=== PATIENT | female | born 1985 | race Caucasian/White ===

== ENCOUNTER 2018-05-20 06:04 | Day surgery (SDC) | payer OTHER ==
[2018-05-20] MEDS ORDERED: CEFAZOLIN 1 GM INJ (07:00)
[2018-05-20 07:05] LABS: ADD MAN DIFF? NO
[2018-05-20 07:07] LABS: BASOPHILS % 0.5 % (0.0-2.0); EOSINOPHILS # 0.3 10^3/ul (0.0-0.5); EOSINOPHILS % 3.1 % (0.0-7.0); HEMATOCRIT 42.8 % (37.0-47.0); HEMOGLOBIN 14.2 g/dl (12.0-16.0); LYMPHOCYTES # 2.3 10^3/ul (0.8-2.9); LYMPHOCYTES % 26.1 % (15.0-51.0); MEAN CORPUSCULAR HEMOGLOBIN 32.1 pg (29.0-33.0); MEAN CORPUSCULAR HGB CONC 33.2 g/dl (32.0-37.0); MEAN CORPUSCULAR VOLUME 96.8 fl (82.0-101.0); MEAN PLATELET VOLUME 11.6 fl (7.4-10.4); MONOCYTE # 0.9 10^3/ul (0.3-0.9); MONOCYTES % 9.7 % (0.0-11.0); NEUTROPHIL # 5.4 10^3/ul (1.6-7.5); NEUTROPHILS % 60.4 % (39.0-77.0); PLATELET COUNT 195 10^3/UL (140-415); RED BLOOD COUNT 4.42 10^6/ul (4.20-5.40); RED CELL DISTRIBUTION WIDTH 13.8 % (11.5-14.5)
[2018-05-20 07:07] LABS: WHITE BLOOD COUNT 8.9 10^3/ul (4.8-10.8)
[2018-05-20] MEDS ORDERED: LACTATED RINGER'S 1,000 ML IV* (07:30)
[2018-05-20] MEDS ORDERED: CEFAZOLIN 2 GM/50 ML (PMX) 50 ML IVPB (07:30)
[2018-05-20 07:34] LABS: INR 0.86; PARTIAL THROMBOPLASTIN TIME 27.9 Sec (23.0-35.0); PROTIME 11.8 Sec (11.9-14.9); PT RATIO 0.9
[2018-05-20] MEDS ORDERED: FENTAnyl 50 MCG/ML VIAL (07:35)
[2018-05-20] MEDS ORDERED: MIDAZOLAM 1 MG/ML 2 ML INJ (07:35)
[2018-05-20 07:44] LABS: ALANINE AMINOTRANSFERASE 91 IU/L (13-69); ALBUMIN 4.1 g/dl (3.3-4.9); ALBUMIN/GLOBULIN RATIO 1.24; ALKALINE PHOSPHATASE 86 IU/L (42-121); ANION GAP 8 (5-13); ASPARTATE AMINO TRANSFERASE 87 IU/L (15-46); BILIRUBIN,INDIRECT 0.3 mg/dl (0-1.1); BILIRUBIN,TOTAL 0.3 mg/dl (0.2-1.3); BLOOD UREA NITROGEN 12 mg/dl (7-20); CALCIUM 9.2 mg/dl (8.4-10.2); CARBON DIOXIDE 26 mmol/L (21-31); CHLORIDE 104 mmol/L (97-110); CREATININE 0.61 mg/dl (0.44-1.00); Estimated GFR > 60 mL/min (>60); GLUCOSE 94 mg/dl (70-220); POTASSIUM 4.1 mmol/L (3.5-5.1); SODIUM 138 mmol/L (135-144); TOTAL PROTEIN 7.4 g/dl (6.1-8.1)
[2018-05-20] MEDS: BUPIVACAINE 0.5% (SDV) 30 ML INJ (07:49)
[2018-05-20] MEDS ORDERED: LIDOCAINE 2% (SDV) 5 ML INJ (08:03)
[2018-05-20] MEDS ORDERED: PROPOFOL 80 ML (08:03)
[2018-05-20] MEDS ORDERED: ONDANSETRON 4 MG INJ IV (08:30)
[2018-05-20] MEDS ORDERED: PROCHLORPERAZINE 10 MG INJ IV (08:30)
[2018-05-20] MEDS ORDERED: HYDROmorphONE 1 MG/5 ML IV SYRINGE IV ×3 (08:30)
[2018-05-20] MEDS ORDERED: DIPHENHYDRAMINE 50 MG INJ IV (08:30)
[2018-05-20] MEDS ORDERED: MEPERIDINE 25 MG INJ IV (08:30)
[2018-05-20] MEDS ORDERED: FENTAnyl 50 MCG/ML VIAL IV ×3 (08:30)
[2018-05-20] MEDS: OXYCODONE/ACETAMINOPHEN (5/325) TAB PO ×2 (08:34→08:41)
== END 2018-05-20 09:25 | disposition home or self-care (01) ==
LOC: SDS 06:04
DX: G56.01 Carpal tunnel syndrome, right upper limb (principal)
CPT/HCPCS: 64721; 80053; 85025; 85610; 85730